=== PATIENT | male | born 1950 | race Caucasian/White ===

== ENCOUNTER → 2016-07-17 | Outpatient (REF) | LOC: WSOH 09:31 | DX: Z02.89 Encounter for other administrative examinations (principal) ==

== ENCOUNTER → 2017-01-31 | Outpatient (CLI) | payer BC | LOC: COL.RAD 08:57 | DX: C61 Malignant neoplasm of prostate (principal); N28.1 Cyst of kidney, acquired; M43.06 Spondylolysis, lumbar region | CPT/HCPCS: A9503; Q9967 ==

== ENCOUNTER 2017-02-28 09:39 | Inpatient (IN) | payer BC ==
[~2017-02-28] VITALS: Ht 175.3 cm; Wt 92.0 kg
[2017-03-21] VITALS (13 sets, daily range): BP systolic 91–119; BP diastolic 57–77; PULSE 77–100; TEMP 96.3–98.4
[2017-03-21 06:24] LABS: HEMATOCRIT 45.5 % (42.0-52.0); HEMOGLOBIN 15.8 g/dl (13.5-18.0); MEAN CELL VOLUME 94 fl (80.0-100.0); MEAN CORPUSCULAR HEMOGLOBIN 33 pg (27.0-31.0); MEAN CORPUSCULAR HGB CONC 35 g/dl (33.0-37.0); PLATELET COUNT 184 K/mm3 (130-400); RED BLOOD COUNT 4.85 M/mm3 (4.20-5.60); WHITE BLOOD COUNT 9.8 K/mm3 (4.8-10.8)
[2017-03-21] MEDS ORDERED: EXFORGE 5 MG-161 TAB PO (06:29)
[2017-03-21 06:38] LABS: CALCIUM 9.3 mg/dL (8.4-10.2); CREATININE, serum 0.8 mg/dL (0.66-1.25); POTASSIUM 4.7 mmol/L (3.4-5.0)
[2017-03-21 14:37] LABS: HEMOGLOBIN 12.2 g/dl (13.5-18.0)
[2017-03-22] VITALS (9 sets, daily range): BP systolic 112–131; BP diastolic 61–86; PULSE 63–90; TEMP 97.7–98.8
[2017-03-22 07:42] LABS: MEAN CELL VOLUME 95 fl (80.0-100.0); MEAN CORPUSCULAR HGB CONC 34 g/dl (33.0-37.0); MEAN PLATELET VOLUME 10.7 fl (7.4-10.4); PLATELET COUNT 175 K/mm3 (130-400); RED BLOOD COUNT 3.32 M/mm3 (4.20-5.60); WHITE BLOOD COUNT 17.2 K/mm3 (4.8-10.8)
[2017-03-22 07:43] LABS: HEMATOCRIT 31.4 % (42.0-52.0); HEMOGLOBIN 10.8 g/dl (13.5-18.0); MEAN CORPUSCULAR HEMOGLOBIN 33 pg (27.0-31.0)
[2017-03-22 07:54] LABS: CALCIUM 7.8 mg/dL (8.4-10.2); CREATININE, serum 0.81 mg/dL (0.66-1.25); POTASSIUM 4.3 mmol/L (3.4-5.0)
[2017-03-23 02:03] VITALS: BP 106/68; PULSE 63; TEMP 98.7
[2017-03-23 05:34] VITALS: BP 108/66; PULSE 62; TEMP 98.6
[2017-03-23 09:50] VITALS: BP 137/76; PULSE 70; TEMP 98.2
[2017-03-23 14:08] VITALS: BP 138/77; PULSE 78; TEMP 98.1
[2017-03-23 17:51] VITALS: BP 118/76; PULSE 80; TEMP 98.9
[2017-03-23 22:21] VITALS: BP 128/65; PULSE 70; TEMP 100.3; TEMP 98.3
[2017-03-24 06:18] VITALS: BP 148/77; PULSE 78; TEMP 98.8
[2017-03-24 09:50] VITALS: BP 151/74; PULSE 77; TEMP 98.3
[2017-03-24 12:47] VITALS: BP 137/74; PULSE 72; TEMP 98.6
== END 2017-03-24 15:03 | disposition home or self-care (01) | DRG 708 ==
LOC: INPTSU 03-21 05:26 → SURG 03-21 07:30
PROVIDERS: Nurse Anesthetist, Certified Registered; Urology
PROC: 0VT00ZZ Resection of Prostate, Open Approach (ICD-10-PCS; principal; 2017-03-21 07:30)
DX: C61 Malignant neoplasm of prostate (principal); I10 Essential (primary) hypertension
CPT/HCPCS: A9284; J0690; J1100; J2250; J2300; J2405; J2704; J2710; J2765; J3010; J3480; J7120

== ENCOUNTER → 2017-03-19 | Outpatient (CLI) | payer BC ==
[~2017-03-19] MED LIST: EXFORGE 5 MG-161 TAB PO
== END ==
LOC: COL.RAD 11:15
DX: R91.8 Other nonspecific abnormal finding of lung field (principal)
CPT/HCPCS: J7050; Q9967

== ENCOUNTER 2017-05-01 12:41 | Day surgery (SDC) | payer BC ==
[~2017-05-01] VITALS: Ht 175.3 cm; Wt 91.8 kg
[2017-05-01 13:17] VITALS: BP 132/85; PULSE 80; TEMP 98.2
[2017-05-01 15:42] VITALS: BP 122/79; PULSE 67
[2017-05-01 15:57] VITALS: BP 121/79; PULSE 78
[2017-05-01 16:12] VITALS: BP 123/83; PULSE 74
== END 2017-05-01 16:29 | disposition home or self-care (01) ==
LOC: SDCO 12:41
DX: Z12.11 Encounter for screening for malignant neoplasm of colon (principal); C61 Malignant neoplasm of prostate; Z86.010 Personal history of colon polyps; Z80.0 Family history of malignant neoplasm of digestive organs
CPT/HCPCS: OP; J2250; J3010; J7030

== ENCOUNTER → 2017-08-01 | Outpatient (CLI) | payer BC | LOC: COL.VAS 13:51 | DX: R60.0 Localized edema (principal) ==

== ENCOUNTER 2021-08-16 09:30 | Outpatient (RCR) | payer MEDICARE ==
[~2021-08-16] VITALS: Ht 175.3 cm; Wt 91.3 kg
[2021-08-16] VITALS (9 sets, daily range): BP systolic 104–120; BP diastolic 60–84; PULSE 67–81; TEMP 97.5–98.4
[2021-08-16] MEDS ORDERED: ADVIL200 MG PO (15:47)
[2021-08-16] MEDS ORDERED: NORVASC 5MG5 MG/TAB PO (15:47)
[2021-08-16] MEDS ORDERED: ZYRTEC 10MG10 MG PO (15:48)
[2021-08-16] MEDS ORDERED: BENICAR40 MG PO (15:48)
== END 2021-08-16 15:54 ==
LOC: EUO 09:30
DX: D53.9 Nutritional anemia, unspecified (principal)
CPT/HCPCS: J7050; P9040

== ENCOUNTER 2023-05-02 10:33 | Outpatient (RCR) | payer MEDICARE ==
[~2023-05-02 10:33] MED LIST changes: -ALLEGRA 180MG180 MG PO; -B-121000 MCG PO; -KLOR-CON20 MEQ PO; -LEVAQUIN 750MG750 M1 PO; -MAG OX 250 PO; -NOXAFILTAB PO; -PRAVACHOL 40MG40 MG PO; -PRILOSEC 20MG20 MG PO; -VENCLEXTA PO; -ZOFRAN8 MG PO; -ZOVIRAX800 MG PO; -ZYLOPRIM 300MG300 MG PO
[2023-05-02 12:05] VITALS: BP 114/65; PULSE 62; TEMP 98.3
[2023-05-02] MEDS ORDERED: VENCLEXTA PO (12:14)
[2023-05-02] MEDS ORDERED: PRILOSEC 20MG20 MG PO (12:14)
[2023-05-02] MEDS ORDERED: LEVAQUIN 750MG750 M1 PO (12:15)
[2023-05-02] MEDS ORDERED: B-121000 MCG PO (12:15)
[2023-05-02] MEDS ORDERED: KLOR-CON20 MEQ PO (12:16)
[2023-05-02] MEDS ORDERED: PRAVACHOL 40MG40 MG PO (12:17)
[2023-05-02] MEDS ORDERED: MAG OX 250 PO (12:17)
[2023-05-02] MEDS ORDERED: ZYLOPRIM 300MG300 MG PO (12:18)
[2023-05-02] MEDS ORDERED: NOXAFILTAB PO (12:18)
[2023-05-02] MEDS ORDERED: ZOFRAN8 MG PO (12:19)
[2023-05-02] MEDS ORDERED: ZOVIRAX800 MG PO (12:19)
[2023-05-02 12:20] VITALS: BP 124/61; PULSE 70; TEMP 97.7
[2023-05-02] MEDS ORDERED: ALLEGRA 180MG180 MG PO (12:20)
[2023-05-02 12:35] VITALS: BP 129/62; PULSE 65; TEMP 97.9
[2023-05-02 13:05] VITALS: BP 125/65; PULSE 68; TEMP 97.7
[2023-05-02 13:45] VITALS: BP 125/71; PULSE 64; TEMP 97.7
--- NOTE | 2023-05-02 14:20 | NUR ---
pt tolerated infusion well. pt ambulated with [facility] to [facility] and was accompanied by son and daughter upon discharge. pt PICC flushed and dressing and caps changed. pt free from acute concerns and complaints upon discharge.
== END 2023-05-02 12:20 | disposition home or self-care (01) ==
LOC: EUO 10:33
DX: D53.9 Nutritional anemia, unspecified (principal)
CPT/HCPCS: J7050; P9035

== ENCOUNTER → 2023-05-02 | Outpatient (CLI) | payer MEDICARE ==
[~2023-05-02] MED LIST changes: +ADVIL200 MG PO; +ALLEGRA 180MG180 MG PO; +B-121000 MCG PO; +BENICAR40 MG PO; +KLOR-CON20 MEQ PO; +LEVAQUIN 750MG750 M1 PO; +MAG OX 250 PO; +NORVASC 5MG5 MG/TAB PO; +NOXAFILTAB PO; +PRAVACHOL 40MG40 MG PO; +PRILOSEC 20MG20 MG PO; +VENCLEXTA PO; +ZOFRAN8 MG PO; +ZOVIRAX800 MG PO; +ZYLOPRIM 300MG300 MG PO; +ZYRTEC 10MG10 MG PO
[2023-05-02 11:48] LABS: BAND 3 % (0-10); EOSINOPHIL 3 % (0-4); LYMPHOCYTE 39 % (20.0-51.0); NEUTROPHILS 53 % (42.0-75.2); PLATELET ESTIMATE DECREASED (NORMAL)
== END ==
LOC: ZCOL.LAB 11:33
PROVIDERS: Family Medicine
DX: D53.9 Nutritional anemia, unspecified (principal)

== ENCOUNTER 2023-05-09 15:37 | Outpatient (RCR) | payer MEDICARE ==
[~2023-05-09] VITALS: Ht 175.3 cm; Wt 70.8 kg
[2023-05-09 15:36] LABS: MEAN CELL VOLUME 86 fl (80.0-100.0); MEAN CORPUSCULAR HGB CONC 35 g/dl (33.0-37.0); MEAN PLATELET VOLUME 9.8 fl (7.4-10.4); RED BLOOD COUNT 2.84 M/mm3 (4.20-5.60)
[~2023-05-09 15:37] MED LIST changes: +ALLEGRA 180MG180 MG PO; +B-121000 MCG PO; +KLOR-CON20 MEQ PO; +LEVAQUIN 750MG750 M1 PO; +MAG OX 250 PO; +NOXAFILTAB PO; +PRAVACHOL 40MG40 MG PO; +PRILOSEC 20MG20 MG PO; +VENCLEXTA PO; +ZOFRAN8 MG PO; +ZOVIRAX800 MG PO; +ZYLOPRIM 300MG300 MG PO
[2023-05-09 15:42] LABS: HEMATOCRIT 24.5 % (42.0-52.0); HEMOGLOBIN 8.5 g/dl (13.5-18.0); MEAN CORPUSCULAR HEMOGLOBIN 30 pg (27-31)
[2023-05-09 15:43] LABS: PLATELET COUNT 42 K/mm3 (130-400)
[2023-05-09 15:50] LABS: ALBUMIN 3.3 gm/dL (3.4-4.8); BILIRUBIN,TOTAL 0.9 mg/dL (0.2-1.2); CALCIUM 8.5 mg/dL (8.4-10.2); CREATININE, serum 0.64 mg/dL (0.72-1.25); POTASSIUM 3.4 mmol/L (3.5-4.5); TOTAL PROTEIN 5.6 gm/dL (6.2-8.1)
[2023-05-09] MEDS ORDERED: NS Flush 10 ML SYRINGE (Power PICC Line - 10 mL PRN) ICA (16:30)
[2023-05-09 16:41] LABS: ANISOCYTOSIS 1+; BAND 3 % (0-10); EOSINOPHIL 1 % (0-4); LYMPHOCYTE 17 % (20.0-51.0); NEUTROPHILS 68 % (42.0-75.2); PLATELET ESTIMATE DECREASED (NORMAL)
[2023-05-09] MEDS ORDERED: NS Flush 10 ML SYRINGE (Power PICC Line - 10 mL Q12hr) ICA SCH (21:00)
--- NOTE | 2023-05-15 08:32 | NUR ---
Spoke with patient.Per pt he is inpatient at [facility].This nurse called and reported [facility].Requested new oders for PICC line care when patient is discharged from .
== END 2023-05-15 08:35 | disposition home or self-care (01) ==
LOC: EUO 15:37 → EDSTATUS 15:37 → EUO 05-15 08:35
PROVIDERS: Internal Medicine
DX: D53.9 Nutritional anemia, unspecified (principal)

== ENCOUNTER 2023-05-14 15:10 | Emergency (ER) | payer MEDICARE ==
[~2023-05-14] VITALS: Ht 175.3 cm; Wt 70.5 kg
[2023-05-14 15:16] VITALS: TEMP 97.7
[2023-05-14] MEDS ORDERED: LR 1,000 ML IV ONE (15:45)
[2023-05-14] MEDS ORDERED: Ondansetron 4 MG/2 ML VIAL IV ONE (15:45)
[2023-05-14 16:07] LABS: MEAN CELL VOLUME 89 fl (80.0-100.0); MEAN CORPUSCULAR HGB CONC 34 g/dl (33.0-37.0); MEAN PLATELET VOLUME 10.5 fl (7.4-10.4); PLATELET COUNT 55 K/mm3 (130-400); RED BLOOD COUNT 3.02 M/mm3 (4.20-5.60); REDCELL DISTRIBUTION WIDTH-CV 18.6 % (11.5-14.5)
[2023-05-14 16:14] LABS: HEMATOCRIT 26.9 % (42.0-52.0); HEMOGLOBIN 9.2 g/dl (13.5-18.0); MEAN CORPUSCULAR HEMOGLOBIN 30 pg (27-31)
[2023-05-14 16:19] LABS: ALANINE AMINOTRANSFERASE 18 U/L (0-55); ALBUMIN 3.1 gm/dL (3.4-4.8); ALKALINE PHOSPHATASE 87 U/L (40-150); ANION GAP 11 mmol/L (7-16); AST,SGOT 7 U/L (5-34); BILIRUBIN,TOTAL 1.7 mg/dL (0.2-1.2); BLOOD UREA NITROGEN 24 mg/dL (8-26); CALCIUM 8.9 mg/dL (8.4-10.2); CARBON DIOXIDE 28 mmol/L (23-31); CHLORIDE 98 mmol/L (98-107); CREATININE, serum 0.77 mg/dL (0.72-1.25); GLUCOSE 134 mg/dL (70-99); SODIUM 137 mmol/L (136-145); TOTAL PROTEIN 6.1 gm/dL (6.2-8.1)
[2023-05-14 16:23] LABS: LIPASE < 4 U/L (8-78); POTASSIUM 2.7 mmol/L (3.5-4.5)
[2023-05-14 16:42] LABS: ANISOCYTOSIS 2+; BAND 2 % (0-10); EOSINOPHIL 1 % (0-4); LYMPHOCYTE 8 % (20.0-51.0); NEUTROPHILS 83 % (42.0-75.2); PLATELET ESTIMATE DECREASED (NORMAL)
[2023-05-14] MEDS ORDERED: NS 100 ML IV SCH (16:55)
[2023-05-14] MEDS ORDERED: Iohexol 300 - 100 ML VIAL IV ONE (16:55)
[2023-05-14] MEDS ORDERED: Magnesium Sulfate 4% 50 ML IV ONE (17:00)
[2023-05-14 20:11] VITALS: BP 110/75; PULSE 82
== END 2023-05-14 20:20 | disposition short-term general hospital (02) ==
LOC: COL.ER 15:10
PROVIDERS: Emergency Medicine
DX: K81.0 Acute cholecystitis (principal); D64.9 Anemia, unspecified; D69.6 Thrombocytopenia, unspecified; E80.7 Disorder of bilirubin metabolism, unspecified
CPT/HCPCS: J2405; J2543; J3475; J7120; Q9967

== ENCOUNTER 2023-07-18 15:33 | Emergency (ER) | payer MEDICARE ==
[~2023-07-18] VITALS: Ht 175.3 cm; Wt 63.6 kg
[2023-07-18] MEDS ORDERED: LR 1,000 ML IV ONE (16:00)
[2023-07-18] MEDS ORDERED: Ondansetron 4 MG/2 ML VIAL IV ONE (16:00)
[2023-07-18 16:31] LABS: MEAN CELL VOLUME 101 fl (80.0-100.0); MEAN CORPUSCULAR HGB CONC 34 g/dl (33.0-37.0); MEAN PLATELET VOLUME 11.3 fl (7.4-10.4); PLATELET COUNT 57 K/mm3 (130-400); RED BLOOD COUNT 2.24 M/mm3 (4.20-5.60)
[2023-07-18 16:34] LABS: HEMATOCRIT 22.7 % (42.0-52.0); HEMOGLOBIN 7.6 g/dl (13.5-18.0); MEAN CORPUSCULAR HEMOGLOBIN 34 pg (27-31)
[2023-07-18 16:44] LABS: ALBUMIN 2.9 gm/dL (3.4-4.8); BILIRUBIN,TOTAL 1.6 mg/dL (0.2-1.2); C-REACTIVE PROTEIN 2.21 mg/dL (0.00-0.50); CALCIUM 7.8 mg/dL (8.4-10.2); CREATININE, serum 0.57 mg/dL (0.72-1.25); POTASSIUM 3.2 mmol/L (3.5-4.5); TOTAL PROTEIN 4.8 gm/dL (6.2-8.1)
[2023-07-18 17:08] LABS: BAND 4 % (0-10); EOSINOPHIL 3 % (0-4); LYMPHOCYTE 34 % (20.0-51.0); NEUTROPHILS 57 % (42.0-75.2); PLATELET ESTIMATE DECREASED (NORMAL)
[2023-07-18] MEDS ORDERED: NS 1,000 ML IV ONE (18:30)
[2023-07-18] MEDS ORDERED: LORazepam 2 MG/ML 1 ML VIAL IV ONE (19:00)
[2023-07-18] MEDS ORDERED: oxyCODONE/Acetaminophen 5-325 MG TAB PO ONE (19:00)
[2023-07-18] MEDS ORDERED: diphenhydrAMINE 50 MG/ML 1 ML VIAL IV ONE (20:15)
[2023-07-18] MEDS ORDERED: Acetaminophen 325 MG TAB PO ONE (20:15)
[2023-07-18 20:22] VITALS: BP 136/80; PULSE 94; TEMP 97.6
[2023-07-18 20:49] VITALS: BP 144/96; PULSE 96; TEMP 97.6
[2023-07-18 21:04] VITALS: BP 143/96; PULSE 94; TEMP 97.6
[2023-07-18 21:10] LABS: URINE APPEARANCE CLEAR (CLEAR/HAZY); URINE BLOOD NEGATIVE (NEGATIVE); URINE COLOR YELLOW (YELLOW); URINE GLUCOSE NEGATIVE (NEGATIVE); URINE KETONE 1+ (NEGATIVE); URINE NITRATE NEGATIVE (NEGATIVE); URINE PROTEIN(semi-quant) NEGATIVE (NEGATIVE)
[2023-07-18 21:28] LABS: COLLECTION METHOD CLEAN CATCH
[2023-07-18 21:34] VITALS: BP 134/91; PULSE 94; TEMP 97.8
[2023-07-18 21:52] VITALS: BP 130/91; PULSE 93; TEMP 98.1
[2023-07-18 21:56] VITALS: BP 130/91; PULSE 93
--- NOTE | 2023-07-19 11:14 | NUR ---
ecclesiastical worker recieved a consult regarding pt in ER who was discharged home, but wanting SNF at [facility]. SW spoke with pt who reports he has a "hard time getting around" and wants to go to SNF for awhile to figure things out. SW inquired about other options in case [facility] in [place] was full. Pt was agreeable to [facility] and [facility]. Pt states he recently was inpatient at [facility] for 35 days and came back 16 days ago. He reports he is established with [facility] for PT and detention. [facility] and [facility].
== END 2023-07-18 22:05 | disposition home or self-care (01) ==
LOC: COL.ER 15:33
PROVIDERS: Family Medicine
DX: C95.90 Leukemia, unspecified not having achieved remission (principal); D64.9 Anemia, unspecified
CPT/HCPCS: J1200; J2060; J2405; J7030; J7120; P9016